=== PATIENT | male | born 1990 | race African-American/Black ===

== ENCOUNTER 2016-11-12 14:25 | Emergency (ER) | payer OTHER ==
[~2016-11-12] VITALS: Ht 162.6 cm; Wt 61.2 kg
[2016-11-12 14:30] VITALS: BP 112/70
[2016-11-12] MEDS ORDERED: IBUPROFEN600 MG ORAL (15:55)
[2016-11-12] MEDS ORDERED: FLONASE ALLERG9.9 ML NS (15:55)
[2016-11-12] MEDS ORDERED: CLARITIN-D 241 EACH PO (15:55)
[2016-11-12 16:06] VITALS: BP 112/70
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
== END 2016-11-12 16:07 | disposition home or self-care (01) ==
LOC: EMR 14:48
DX: S00.33XA Contusion of nose, initial encounter (principal); J30.9 Allergic rhinitis, unspecified; J45.909 Unspecified asthma, uncomplicated; W50.0XXA Accidental hit or strike by another person, initial encounter; Y92.9 Unspecified place or not applicable; Y99.8 Other external cause status
CPT/HCPCS: 70160; 99284